=== PATIENT | female | born 1965 | race Hispanic/Latino ===

== ENCOUNTER 2017-08-11 09:21 | Outpatient (CLI) | payer OTHER ==
--- NOTE | 2017-08-11 11:02 | RAD ---
CHEST TWO VIEWS: History: Dyspnea. Comparison: None. FINDINGS: Normal cardiac silhouette. The pulmonary vessels and hilum are normal. No masses. No consolidation. N o pneumothorax or osseous abnormalities. IMPRESSION: No acute cardiopulmonary process. POS: VIH
== END 2017-08-11 09:22 | disposition home or self-care (01) ==
LOC: RAD 09:21
PROVIDERS: ATTEND Internal Medicine Critical Care Medicine
DX: R06.00 Dyspnea, unspecified (principal)
CPT/HCPCS: 71020

== ENCOUNTER 2018-04-05 15:20 | Outpatient (CLI) | payer OTHER | END 2018-04-05 15:21 | disposition home or self-care (01) | LOC: BICMAMMO 15:20 | PROVIDERS: ATTEND Obstetrics & Gynecology | DX: Z12.31 Encounter for screening mammogram for malignant neoplasm of breast (principal) | CPT/HCPCS: 77063; 77067 ==

== ENCOUNTER 2020-03-06 17:59 | Emergency (ER) | payer OTHER ==
[2020-03-06] MEDS ORDERED: Ketorolac Tromethamine 30 MG/ML VIAL ONE (19:30)
== END 2020-03-06 19:30 | disposition home or self-care (01) ==
LOC: ERS 17:59
DX: M25.512 Pain in left shoulder (principal); X50.1XXA Overexertion from prolonged static or awkward postures, initial encounter
CPT/HCPCS: 96372; 99283; J1885

== ENCOUNTER 2020-06-07 07:59 | Outpatient (CLI) | payer OTHER ==
--- NOTE | 2020-06-07 08:47 | MRI ---
MR of the left shoulder without contrast INDICATION: Left shoulder pain. Left shoulder muscular strain TECHNIQUE: Sagittal T1, axial and coronal PD fat sat, sagittal and coronal T2 fat sat images were obt ained of the left shoulder. COMPARISON: MR the left shoulder dated July 01, 2010 FINDINGS: Motion artifact limits image detail. Rotator cuff: There is a full-thickness tear involving the mid supraspinatus at the footprint measuri ng 1.1 x 0.7 cm in its greatest mediolateral and AP dimensions respectively. There is moderate tendinosis of the supraspinatus and infraspinatus. There is a focus of intratendinous delamination ag ain seen involving the anterior infraspinatus tendon. Glenohumeral joint: Articular cartilage is intact. Glenoid labrum: Intact Biceps tendon and biceps anchor: Intact and located. Acromion clavicular joint: There is mild AC joint osteoarthrosis that has mildly progressed from prio r exam. Subacromial subdeltoid space: There is fluid in the subacromial subdeltoid space Axillary region: No lymphadenopathy. Surrounding shoulder musculature: Normal. No evidence of atrophy or strain. IMPRESSION: 1. Interval development of a full-thickness tear of the mid supraspinatus at the footprint. 2. Moderate tendinosis of the supraspinatus and infraspinatus with persistent intratendinous delamina ting tear involving the anterior infraspinatus tendon. 3. Mild AC joint osteoarthrosis.
== END 2020-06-07 08:00 | disposition home or self-care (01) ==
LOC: MRI 07:59
PROVIDERS: ATTEND Family Medicine
DX: S46.912D Strain of unspecified muscle, fascia and tendon at shoulder and upper arm level, left arm, subsequent encounter (principal); M19.012 Primary osteoarthritis, left shoulder; M75.82 Other shoulder lesions, left shoulder

== ENCOUNTER 2020-07-18 07:09 | Outpatient (CLI) | payer OTHER ==
[2020-07-18 14:24] LABS: #Basophils 0.1 10x3/uL (0.0-0.2); #Eosinphils 0.2 10x3/uL (0.0-0.5); #Monocytes 0.8 10x3/uL (0.0-1.1); #Neutrophils 5.3 10x3/uL (1.5-8.4); %Basophils 0.5 % (0.0-2.0); %Eosinophils 2.1 % (0.0-6.0); %Lymphocytes 36.3 % (18.0-47.0); %Monocytes 7.9 % (0.0-10.0); Hemoglobin 14.5 g/dL (12.0-16.0); Mean Corpuscular HGB CONC 32.2 G/DL (32.0-36.0); Mean Corpuscular Hemoglobin 28.5 PG (27.0-33.0); Mean Corpuscular Volume 88.6 fl (80.0-100.0); Mean Platelet Volume 10.3 fl (7.4-10.4); Platelet Count 322 10x3/uL (130-400); RBC Distribution Width 12.8 % (11.5-14.5); Red Blood Cell (RBC) Count 5.09 10x6/uL (3.90-5.20)
[2020-07-18 14:26] LABS: Anion Gap 17 mmol/L (10-20); BUN (Urea Nitrogen) 18 mg/dL (9.8-20.1); Calc. Creatinine Clearance 0 mL/min (70-130); Calcium 9.2 mg/dL (7.8-10.44); Carbon Dioxide 23 mmol/L (22-29); Chloride 103 mmol/L (98-107); Estimated GFR-MDRD 78; Glucose 79 mg/dL (70-105); Potassium 4.6 mmol/L (3.5-5.1); Sodium 138 mmol/L (136-145)
[2020-07-19 00:38] LABS: SARS-CoV-2 MS2 Positive; SARS-CoV-2 N Gene Negative; SARS-CoV-2 S Gene Negative; SARS-CoV-2 by NAA Not Detected (NotDetected); SARS-CoV-2 orf1ab Negative
== END 2020-07-18 07:10 | disposition home or self-care (01) ==
LOC: LABBT 07:09
PROVIDERS: ATTEND Orthopaedic Surgery
DX: Z01.812 Encounter for preprocedural laboratory examination (principal); M75.101 Unspecified rotator cuff tear or rupture of right shoulder, not specified as traumatic; Z20.828 Contact with and (suspected) exposure to other viral communicable diseases
CPT/HCPCS: 80048; 85025; 87635; U0003

== ENCOUNTER 2020-07-23 06:07 | Day surgery (SDC) | payer OTHER ==
[2020-07-20 11:47] VITALS: BMI 38.7
[2020-07-23] MEDS ORDERED: Fentanyl 100 MCG/2 ML VIAL ONE ×2 (06:18→06:45)
[2020-07-23] MEDS ORDERED: Midazolam HCl 2 mg/2 ml Vial ONE ×2 (06:18→06:45)
[2020-07-23] MEDS ORDERED: Lidocaine 2% w/Epinephrine 1:200K 20 ML VIAL ONE (06:40)
[2020-07-23] MEDS ORDERED: Bupivacaine 0.25% HCL 30 ML VIAL ONE (06:40)
[2020-07-23] MEDS ORDERED: HYDROcodone/Acetaminophen 10/325 mg Tablet PO PRN ×2 (07:45)
[2020-07-23] MEDS ORDERED: traMADol HCl 50 MG TAB PO PRN ×2 (07:45)
[2020-07-23] MEDS ORDERED: Ropivacaine 0.2% 550 ML 550 ML NERVE BLCK SCH (07:45)
[2020-07-23] MEDS ORDERED: Ondansetron PF 4 MG/2 ML Vial IVP PRN (07:45)
[2020-07-23] MEDS ORDERED: Zolpidem Tartrate 5 MG TAB PO PRN (07:45)
[2020-07-23] MEDS ORDERED: Promethazine HCl 25 MG/ML VIAL IM PRN (07:45)
[2020-07-23] MEDS ORDERED: Promethazine HCl 25 MG/ML VIAL ONE (09:45)
[2020-07-23] MEDS ORDERED: Ondansetron ODT 4 MG TAB ONE (10:08)
[2020-07-23] MEDS ORDERED: Glycopyrrolate 0.2 MG/ML 5 ML SYRINGE ONE (10:32)
[2020-07-23] MEDS ORDERED: Lidocaine 1% PF 5 ML VIAL ONE (10:32)
[2020-07-23] MEDS ORDERED: Dexamethasone 20 MG/5 ML VIAL ONE (10:32)
[2020-07-23] MEDS ORDERED: PROPOFOL 200 MG/20 ML VIAL ONE (10:32)
[2020-07-23] MEDS ORDERED: Ketorolac Tromethamine 30 MG/ML VIAL ONE (10:32)
[2020-07-23] MEDS ORDERED: Ropivacaine 0.2% HCl/PF (40 MG/20 ML VIAL) ONE (10:32)
[2020-07-23] MEDS ORDERED: PHENYLEPHRINE-NS 100 MCG/ML 10 ML SYRINGE ONE (10:32)
[2020-07-23] MEDS ORDERED: Ondansetron PF 4 MG/2 ML Vial ONE (10:32)
[2020-07-23] MEDS ORDERED: Ropivacaine 0.5% HCl/PF (150 MG/30 ML VIAL) ONE (10:32)
[2020-07-23] MEDS ORDERED: Rocuronium Bromide 10 MG/ML (10ML VIAL) ONE (10:32)
[2020-07-23] MEDS ORDERED: Ketorolac Tromethamine 30 MG/ML VIAL IVP SCH (12:00)
--- NOTE | 2020-07-23 13:22 | OP ---
DATE OF PROCEDURE: 07/23/2020 PREOPERATIVE DIAGNOSES: Left shoulder rotator cuff tear. POSTOPERATIVE DIAGNOSES: 1. Left shoulder rotator cuff tear to include the distal portion of supraspinatus/beginning portion of infraspinatus. 2. Biceps tendon instability secondary to degenerative superior labrum anterior-posterior tear as well as the leading edge subscapularis tear involving bicipital sling. ORNAMENTAL PLASTER STICKER: Ralf Brannon PA-C. The care assistant surgeon was present throughout the open biceps tendon procedure to include the approach, fixation of the biceps tendon, and closure of all shoulder incisions. ESTIMATED BLOOD LOSS: Minimal. COMPLICATIONS: None. ANESTHESIA: The patient did have a general anesthetic as well as a preoperative block. IMPLANTS: We used a double-loaded Titanium rotator cuff anchor. We also used 7 x 23 BioComposite Bio-Tenodesis screw. DISPOSITION: She did go to recovery room in stable condition. INDICATIONS: Jennifer is a 54-year-old female who has been having significant problems in her left shoulder for many months secondary to Workers' Compensation injury. MRI scan was obtained, showing a full-thickness rotator cuff tear, and at this time, she opted to have surgery. DESCRIPTION OF PROCEDURE: After all appropriate consent forms were explained and signed, Jennifer was taken back to the operating room and at this time was given a general anesthetic. Once the level of anesthesia was appropriate, she was rolled into the right lateral decubitus position with all bony prominences well padded. Axillary roll was placed beneath the right axilla. Beanbag was inflated to hold her in this position. The arm was then taken through full range of motion and was then suspended with the arthroscopic arm olivia with 10 pounds in standard fashion. The left shoulder and upper extremity were then prepped and draped in standard surgical fashion. Lidocaine with epinephrine was then injected into the subacromial space. Posterior portal was then established. Scope was placed into the shoulder joint. Anterior working portal was made using a needle localization technique. Diagnostic arthroscopy commenced at this time through the cartilage on the humeral head and glenoid, were found to be in excellent condition. Subscapularis was noted to have a leading edge tear involving sling of the biceps tendon. Thus, we stabilizing it anteriorly. A degenerative SLAP tear was noted and we stabilizing the biceps tendon as well. Posterior labrum, inferior labrum, and anterior labrum were found to be in good condition. Small full-thickness rotator cuff tear was noted and at this time was debrided from this portion of the tendon. At this time, a green cannula was placed anteriorly and an 18-gauge needle was used to herzog the biceps tendon and place the stitch through it. Arthroscopic scissors were then used to cut the biceps tendon off the superior labrum. The scope was then repositioned into the subacromial space. Lateral working portal was made. Bursa was removed from off the underlying rotator cuff as well as the undersurface of the acromion using the SERFAS energy as well as the shaver. Once we had adequate visualization, we were able to find a small rotator cuff tear. A shaver was introduced to debride the edges of this as well as remove any soft tissue off the bony insertion. This was found to be a very small tear. We then went ahead and placed the Passport cannula laterally, and through the passport cannula, a double-loaded Titanium rotator cuff anchor was placed into the bone. Once this was done, the stitches were brought out the anterior green cannula. We then used the Scorpion device to place both sets of sutures through the rotator cuff in mattress fashion. These were then tied, performing nice anatomic reduction of the tendon, and at this time, we do not feel we needed to add any other fixation. We then went ahead and removed the camera, drained the shoulder, and went ahead to perform our biceps tenodesis. A 15 blade was used to incise down through skin. Bovie was used to coagulate any brisk venous bleeding. Deltoid fascia was split sharply and finger dissection was used to get down to the underlying transverse humeral ligament. We then opened up the transverse humeral ligament and brought the tendon out to the wound. We then sutured our biceps tendon followed by removing the intra-articular portion of the biceps tendon and taking it off the field. We then placed our guidewire followed by using a 7-mm reamer to ream to a depth of 25 and then placed a 7 x 23 BioComposite Bio-Tenodesis screw in standard fashion. Sutures were tied over top of this, so that the screw could not back out. At this time, we thoroughly irrigated and dried our incision. We allowed our deltoid split to close upon itself. A running Vicryl was used to close our deltoid fascia, 2-0 Vicryl and nylon sutures were used to close skin. A simple nylon suture was then used to close each portal. Bulky sterile dressing was applied. The patient was then awakened and she was taken to the recovery room in stable condition. All counts were correct at the end of the case and she did receive preoperative IV antibiotics. Job ID: [id number] MTDD
== END 2020-07-23 11:45 | disposition home or self-care (01) ==
LOC: SDC 06:07
PROVIDERS: ATTEND Orthopaedic Surgery
PROC: 0LQ24ZZ Repair Left Shoulder Tendon, Percutaneous Endoscopic Approach (ICD-10-PCS; principal; 2020-07-23)
PROC: 3E0T3BZ Introduction of Anesthetic Agent into Peripheral Nerves and Plexi, Percutaneous Approach (ICD-10-PCS; principal; 2020-07-23)
PROC: 0RNK4ZZ Release Left Shoulder Joint, Percutaneous Endoscopic Approach (ICD-10-PCS; principal; 2020-07-23)
DX: M75.122 Complete rotator cuff tear or rupture of left shoulder, not specified as traumatic (principal); M25.312 Other instability, left shoulder; G89.18 Other acute postprocedural pain; J45.909 Unspecified asthma, uncomplicated; E66.9 Obesity, unspecified; Z68.38 Body mass index [BMI] 38.0-38.9, adult; Z79.899 Other long term (current) drug therapy; Z91.048 Other nonmedicinal substance allergy status
CPT/HCPCS: 93005; 93010; A4306; C1713; J0690; J1100; J1885; J2250; J2405; J2550; J2704; J2795; J3010; Q0162; S0020

== ENCOUNTER 2020-10-30 10:31 | Outpatient (CLI) | payer OTHER ==
--- NOTE | 2020-10-30 10:46 | RAD ---
2 views chest: 10/30/2020 COMPARISON: 08/11/2017 HISTORY: Dyspnea FINDINGS: Mild increased linear interstitial density. No pneumothorax or pleural fluid. No focal cons olidation or alveolar edema. IMPRESSION: Stable mild increased linear interstitial density with no focal consolidation or alveolar edema.
== END 2020-10-30 10:32 | disposition home or self-care (01) ==
LOC: BICRAD 10:31
PROVIDERS: ATTEND Internal Medicine Critical Care Medicine
DX: R06.00 Dyspnea, unspecified (principal); J98.4 Other disorders of lung
CPT/HCPCS: 71046

== ENCOUNTER 2020-12-07 12:55 | Outpatient (CLI) | payer OTHER | END 2020-12-07 12:56 | disposition home or self-care (01) | LOC: TBSIIMAG 12:55 | PROVIDERS: ATTEND Family Medicine | DX: R20.0 Anesthesia of skin (principal); M50.321 Other cervical disc degeneration at C4-C5 level; M47.812 Spondylosis without myelopathy or radiculopathy, cervical region; M48.02 Spinal stenosis, cervical region | CPT/HCPCS: 72141 ==

== ENCOUNTER 2021-05-27 08:01 | Outpatient (CLI) | payer OTHER | END 2021-05-27 08:02 | disposition home or self-care (01) | LOC: BICMRI 08:01 | PROVIDERS: ATTEND Nurse Practitioner Family | DX: M47.26 Other spondylosis with radiculopathy, lumbar region (principal) | CPT/HCPCS: 72148 ==

== ENCOUNTER 2021-06-11 09:02 | Outpatient (CLI) | payer OTHER | END 2021-06-11 09:03 | disposition home or self-care (01) | LOC: DTY/OP 09:02 | PROVIDERS: ATTEND Family Medicine | DX: E66.01 Morbid (severe) obesity due to excess calories (principal); Z68.41 Body mass index [BMI] 40.0-44.9, adult; Z83.3 Family history of diabetes mellitus | CPT/HCPCS: 97802 ==

== ENCOUNTER 2021-09-02 08:48 | Outpatient (CLI) | payer BC, OTHER ==
[2021-09-02] MEDS ORDERED: Magnevist 469MG/ML 20 ML VIAL ONE (12:09)
== END 2021-09-02 08:49 | disposition home or self-care (01) ==
LOC: MRI 08:48
PROVIDERS: ATTEND Nurse Practitioner Acute Care
DX: G51.39 Clonic hemifacial spasm, unspecified (principal)
CPT/HCPCS: 70553; A9579

== ENCOUNTER 2022-06-23 11:33 | Outpatient (CLI) | payer BC ==
[2022-06-23] MEDS ORDERED: Iopamidol 370 76% 100 ML VIAL ONE (12:15)
== END 2022-06-23 11:34 | disposition home or self-care (01) ==
LOC: CT 11:33
PROVIDERS: ATTEND Surgery
DX: G51.39 Clonic hemifacial spasm, unspecified (principal); G50.9 Disorder of trigeminal nerve, unspecified
CPT/HCPCS: 70496; Q9967